=== PATIENT | male | born 1940 | race Hispanic/Latino ===

== ENCOUNTER 2017-10-26 05:57 | Inpatient (IN) | payer MEDICARE ==
[2017-10-26 06:39] LABS: #Eosinphils 0.2 thou/uL (0.0-0.7); #Monocytes 0.5 thou/uL (0.11-0.59); #Neutrophils 4.3 thou/uL (1.40-6.50); %Basophils 0.4 % (0.0-1.0); %Eosinophils 2.6 % (0.0-10.0); %Lymphocytes 16.2 % (21.0-51.0); %Monocytes 8.9 % (0.0-10.0); Hemoglobin 14.1 g/dL (14.0-18.0); Mean Corpuscular HGB CONC 34.1 g/dL (32.0-36.0); Mean Corpuscular Hemoglobin 28.9 pg (27.0-31.0); Mean Corpuscular Volume 84.8 fl (80.0-94.0); Mean Platelet Volume 7.2 fL (7.4-10.4); Platelet Count 191 thou/uL (130-400); RBC Distribution Width 12.5 % (11.5-14.5); Red Blood Cell (RBC) Count 4.88 mill/uL (4.70-6.10)
[2017-10-26 07:00] LABS: Anion Gap 13 mmol/L (10-20); BUN (Urea Nitrogen) 12 mg/dL (8.4-25.7); Calc. Creatinine Clearance 0 mL/min (70-130); Calcium 9.3 mg/dL (7.8-10.44); Carbon Dioxide 25 mmol/L (23-31); Chloride 102 mmol/L (98-107); Estimated GFR-MDRD 83; Glucose 217 mg/dL (83-110); Potassium 4.2 mmol/L (3.5-5.1); Sodium 136 mmol/L (136-145)
[2017-10-26] MEDS ORDERED: Sodium Chloride 0.9% 10 ML ONE (07:02)
[2017-10-26] MEDS ORDERED: CEFAZOLIN/Water 2 GM/20 ML SYRINGE ONE (07:19)
[2017-10-26] MEDS ORDERED: Famotidine/PF 20 mg/2ml Vial ONE (07:45)
[2017-10-26] MEDS ORDERED: Fentanyl 100 MCG/2 ML VIAL ONE ×2 (07:45→09:22)
[2017-10-26] MEDS ORDERED: HYDROmorphone 0.5 MG/0.5 ML SYRINGE ONE (08:46)
[2017-10-26] MEDS ORDERED: Meperidine HCl/PF 25 MG/ML VIAL SLOW IVP PRN ×2 (08:53)
[2017-10-26] MEDS ORDERED: Promethazine HCl 25 MG/ML VIAL SLOW IVP PRN ×2 (08:53)
[2017-10-26] MEDS ORDERED: HYDROmorphone 2 MG/ML VIAL SLOW IVP PRN ×2 (08:53)
[2017-10-26] MEDS ORDERED: Ondansetron HCl/PF 4 MG/2 ML Vial IVP PRN ×4 (08:53→11:00)
[2017-10-26] MEDS ORDERED: Promethazine HCl 25 MG/ML VIAL IM PRN ×3 (08:53→10:59)
[2017-10-26] MEDS ORDERED: Morphine Sulfate 2 MG/ML SYRINGE SLOW IVP PRN ×2 (08:53)
--- NOTE | 2017-10-26 09:03 | OP ---
DATE OF PROCEDURE: 10/26/2017 SURGEON: Aj Carrera M.D. FLOORWORKER DISTRIBUTOR: Vazquez Alvarez PA-C PROCEDURE: Anterior cervical discectomy C5-6 and C6-7, interbody arthrodesis, intravertebral biomech anical device, local morselized autograft, demineralized bone matrix, anterior titanium instrumentati on C5-6 and C6-7. PROCEDURE IN DETAIL: The patient was brought into the operating room and intubated. He was position ed supine in modest extension on a gel-filled donut. Incision was made in the right precervical area and dissecting medial sternocleidomastoid muscle, identified the anterior cervical spine and our lev el was confirmed by x-ray. We debrided anterior osteophytes, placed distraction across the disc spac es, and completely decompressed the intravertebral discs from foramen to foramen. The bony endplates were then decorticated for the purpose of arthrodesis and appropriately sized intravertebral biomech anical PEEK device was brought into the field, filled with demineralized bone matrix, local morselize d autograft, and tapped into place securely at C5-6 and C6-7. Next, an anterior plate was brought in to the field and secured to C5, C6, and C7 using two 14 mm screws at each level. The wound was then extensively irrigated, immaculate hemostasis was secured, and the wound was closed in anatomic layers over a drain.
[2017-10-26] MEDS ORDERED: Acetaminophen 325 MG TAB PO PRN (10:45)
[2017-10-26] MEDS ORDERED: Loratadine 10 MG TAB PO PRN (10:45)
[2017-10-26] MEDS ORDERED: Loperamide HCl 2 MG CAP PO PRN (10:45)
[2017-10-26] MEDS ORDERED: Temazepam 15 MG CAP PO PRN (10:45)
[2017-10-26] MEDS ORDERED: HYDROcodone/Acetaminophen 5/325 mg Tablet PO PRN (10:45)
[2017-10-26] MEDS ORDERED: Mag-Al 1200 mg/1200 mg/30 ML UDCUP PO PRN ×2 (10:45→10:59)
[2017-10-26] MEDS ORDERED: Milk Of Magnesia 30 ML UDCUP PO PRN ×2 (10:45→10:59)
[2017-10-26] MEDS ORDERED: Diabetic Tussin 200 MG/10 ML UDCUP PO PRN (10:45)
[2017-10-26] MEDS ORDERED: Eucerin (Mineral Oil/Petrolatum,White) 30 gm Jar TOP PRN (10:45)
[2017-10-26] MEDS ORDERED: Ondansetron ODT 4 MG TAB PO PRN (10:45)
[2017-10-26] MEDS ORDERED: Labetalol HCl 100 MG/20 ML VIAL SLOW IVP PRN (10:45)
[2017-10-26] MEDS ORDERED: Sodium Chloride 0.65% Nasal 44 ML BOT EA NARE PRN (10:45)
[2017-10-26] MEDS ORDERED: Artificial Tears 18 DROP/0.9 ML EA EYE PRN (10:45)
[2017-10-26] MEDS ORDERED: Chloraseptic Spray 180 ml Bottle PO PRN (10:45)
[2017-10-26] MEDS ORDERED: hydrALAZINE 20 MG/ML VIAL SLOW IVP PRN (10:45)
[2017-10-26] MEDS ORDERED: Dextrose 50% Abboject 50 ML SYRINGE SLOW IVP PRN (10:45)
[2017-10-26] MEDS ORDERED: Senokot 8.6 MG TAB PO PRN (10:45)
[2017-10-26] MEDS ORDERED: HumaLOG 300 UNITS/3 ML VIAL SC PRN (10:45)
[2017-10-26] MEDS ORDERED: Dextrose 5% in Water 1,000 ML IV PRN (10:45)
[2017-10-26] MEDS ORDERED: tiZANidine HCl 4 MG TAB PO PRN (10:59)
[2017-10-26] MEDS ORDERED: diphenhydrAMINE 25 MG CAP PO PRN (10:59)
[2017-10-26] MEDS ORDERED: diphenhydrAMINE 50 MG/ML VIAL IVP PRN (10:59)
[2017-10-26] MEDS ORDERED: Promethazine HCl 12.5 MG SUPP PR PRN (10:59)
[2017-10-26] MEDS ORDERED: Promethazine 25 MG TAB PO PRN ×2 (10:59)
[2017-10-26] MEDS ORDERED: traMADol HCl 50 MG TAB PO PRN ×2 (10:59)
[2017-10-26] MEDS ORDERED: HYDROcodone/Acetaminophen 10/325 mg Tablet PO PRN ×2 (10:59)
[2017-10-26] MEDS ORDERED: Morphine 4 MG/ML Carpuject SLOW IVP PRN (10:59)
[2017-10-26 11:06] LABS: Hemoglobin A1c 8.4 % (4.0-6.0)
[2017-10-26] MEDS ORDERED: Morphine 4 MG/ML VIAL SLOW IVP PRN ×2 (11:15)
[2017-10-26] MEDS ORDERED: Metoprolol Tartrate 25 MG TAB PO SCH (11:15)
[2017-10-26] MEDS ORDERED: Lisinopril 10 MG TAB PO SCH (11:15)
--- NOTE | 2017-10-26 11:25 | CON ---
DATE OF CONSULTATION: 10/26/2017 PRIMARY CARE PHYSICIAN: Ilia Meneses M.D. PRIMARY ATTENDING: Aj Carrera M.D. REASON FOR CONSULTATION: Medical comanagement. HISTORY OF PRESENT ILLNESS: A 77-year-old male who has history of diabetes type 2 as well a s hypertension, which he was diagnosed in the past, but he was not taking any medication. When I ask ed the patient why he was not taking any medication, he reports that he did not like medication and h e stopped taking by himself. He was not checking his blood sugar as well as blood pressure at home. The patient was referred to neurosurgeon by primary care physician for his chronic neck pain and radi cular pain to right upper extremity. The patient was diagnosed with cervical spine degenerative join t disease as well as cervical spondylosis with radiculopathy. Patient failed outpatient therapy and today patient was electively admitted for anterior cervical discectomy C5-C6 and C6-C7, which was don e by Dr. Carrera and subsequently patient was transferred to surgical floor. When patient came to surgical floor, his blood pressure was 220/102 and that is why we were consulted for hypertension management and they did routine blood test this morning and his blood sugar was fou nd 217. Patient denies any chest pain, palpitations and shortness of breath. He denies any headache . He denies any focal motor or sensory symptoms. He denies any UTI symptoms. He denies any constip ation or diarrhea. Even though this blood pressure is high, patient is completely asymptomatic. The patient had cervical spine surgery today and he has drain in place and his pain is under control. PAST MEDICAL HISTORY: Reportedly he has history of diabetes type 2 and he was on oral hypoglycemic a gent, but currently he is not taking any medication. Similarly, patient has a history of hypertensio n, but he was not taking any medication for blood pressure. He was recently diagnosed with cervical spondylosis. PAST SURGICAL HISTORY: Abdominal hernia repair, status post anterior cervical discectomy C5-C6 and C 6-C7 today. CURRENT HOME MEDICATION: Lyrica 75 mg in the morning. PAST PSYCHIATRIC HISTORY: Reviewed and negative. ALLERGIES: No known drug allergy. FAMILY HISTORY: No strong family history of premature coronary artery disease, stroke or cancer. SOCIAL HISTORY: The patient lives at home with family. No history of tobacco, alcohol or illicit dr ug abuse. REVIEW OF SYSTEMS: The following complete review of systems was negative, unless otherwise mentioned in the HPI or below: Constitutional: Weight loss or gain, ability to conduct usual activities. Skin: Rash, itching. Eyes: Double vision, pain. ENT/Mouth: Nose bleeding, neck stiffness, pain, tenderness. Cardiovascular: Palpitations, dyspnea on exertion, orthopnea. Respiratory: Shortness of breath, wheezing, cough, hemoptysis, fever or night sweats. Gastrointestinal: Poor appetite, abdominal pain, heartburn, nausea, vomiting, constipation, or diarr hea. Genitourinary: Urgency, frequency, dysuria, nocturia. Musculoskeletal: Pain, swelling. Neurologic/Psychiatric: Anxiety, depression. Allergy/Immunologic: Skin rash, bleeding tendency. Please see my HPI for pertinent positive and negative. All other review of systems reviewed and nega tive except as mentioned in the HPI. PHYSICAL EXAMINATION: VITAL SIGNS: Currently, temperature 98.6, pulse 75, respiratory rate 16, saturation 95% on room air, and blood pressure 220/102. GENERAL: Patient is currently alert, awake, no obvious acute distress. HEAD: Normocephalic, atraumatic. EYES: Pupils round, reactive to light. Extraocular muscle intact. ENT: Oropharynx within normal limits. Moist mucous membranes, no oral lesion, no pharyngeal erythem a, no exudate. NECK: Surgical site is covered with dressing and drain in place. LUNGS: Clear to auscultation without any rhonchi or rales. CARDIAC: S1 and S2 regular. No murmur, no gallop, no rub. ABDOMEN: Obesity present. Bowel sounds present, nontender, nondistended. No organomegaly, no mass, no suprapubic tenderness. BACK: Examination unremarkable, no CVA tenderness. EXTREMITIES: Upper extremity passive movements of all joints are normal. Lower extremities, no jaquan a. Good peripheral pulsation. SKIN: No skin rash. HEMATOLOGICAL SYSTEM: No lymphadenopathy. PSYCHIATRIC: Normal affect. SIGNIFICANT LABORATORY DATA: CBC: WBC 6.0, hemoglobin 14.1, platelet 191. BMP: Sodium 136, potass ium 4.2, chloride 102, carbon dioxide 25, anion gap 13, BUN 12, creatinine 0.89, glucose 217, calcium 9.3. ASSESSMENT AND PLAN/IMPRESSION: 1. Hypertensive urgency with history of hypertension, not on any medication at home, likely due to h is noncompliance. At this point, we will start lisinopril 10 mg p.o. daily. We will use hydralazine and labetalol p.r.n. basis. We will also add metoprolol 12.5 mg twice daily. Based on his vitals, we will titrate blood pressure medication and adjust accordingly. The patient education is given reg arding importance of taking blood pressure medication, monitoring and follow up with primary care adamaris caoian for adjustment of medication upon discharge. We will closely monitor his vitals. 2. Diabetes type 2. The patient was diagnosed with diabetes in the past and he was on oral diabetic medication, but he is no longer taking any medications due to his noncompliance. We will start insu april as per sliding scale protocol. Diabetic diet will be given. We will check hemoglobin A1c. Nece ssary dietary education given to the patient. We will start metformin 1000 mg p.o. b.i.d. 3. Obesity. Dietary education given, weight loss education given. Healthy lifestyle measures discu ssed with the patient. 4. Cervical spondylosis with radiculopathy status post anterior cervical discectomy. The patient gonzalez s drain in place. Surgical site and drain care will defer to neurosurgeon. The patient will need PT /OT while in hospital. Pain control with pain medication. We will continue Lyrica 75 mg p.o. daily. 5. Deep venous thrombosis prophylaxis, sequential compression device boots. No Lovenox because of c ervical spine surgery. 6. Gastrointestinal prophylaxis, Pepcid 20 mg p.o. b.i.d. 7. Code status: The patient is FULL CODE. Patient does not have any surrogate decision maker at th is point. Disposition plan based on clinical course. The patient is instructed to follow up with primary care physician as he will need further evaluation with urinalysis, lipid profile checked and routine health monitoring as an outpatient basis.
[2017-10-26] MEDS ORDERED: CEFAZOLIN/Water 2 GM/20 ML SYRINGE SLOW IVP SCH (14:00)
[2017-10-26] MEDS ORDERED: Glycopyrrolate 0.2 MG/ML 5 ML SYRINGE ONE (16:18)
[2017-10-26] MEDS ORDERED: PROPOFOL 200 MG/20 ML VIAL ONE (16:18)
[2017-10-26] MEDS ORDERED: Lidocaine 1% PF 5 ML VIAL ONE (16:18)
[2017-10-26] MEDS ORDERED: Dexamethasone 20 MG/5 ML VIAL ONE ×2 (16:18)
[2017-10-26] MEDS ORDERED: Ondansetron HCl/PF 4 MG/2 ML Vial ONE (16:18)
[2017-10-26] MEDS: CEFAZOLIN/Water 2 GM/20 ML SYRINGE SLOW IVP SCH (16:23)
[2017-10-26] MEDS: metFORMIN 500 MG TAB PO SCH (16:23)
[2017-10-26] MEDS: Sodium Chloride 0.9% 1,000 ML IV SCH (17:30)
[2017-10-26] MEDS: HumaLOG 300 UNITS/3 ML VIAL SC PRN (17:50)
[2017-10-26 18:51] VITALS: BMI 34.9
[2017-10-26] MEDS: Famotidine 20 MG TAB PO SCH (21:47)
[2017-10-26] MEDS: Metoprolol Tartrate 25 MG TAB PO SCH (21:47)
[2017-10-27] MEDS: CEFAZOLIN/Water 2 GM/20 ML SYRINGE SLOW IVP SCH (00:12)
[2017-10-27] MEDS: Sodium Chloride 0.9% 1,000 ML IV SCH (00:20)
[2017-10-27] MEDS: HumaLOG 300 UNITS/3 ML VIAL SC PRN (07:28)
[2017-10-27] MEDS ORDERED: Lisinopril 10 MG TAB PO SCH (09:00)
[2017-10-27] MEDS ORDERED: Pregabalin 75 MG CAP PO SCH (09:00)
[2017-10-27] MEDS ORDERED: Prevnar 13-Val Conj/PF 0.5 ML SYRINGE IM ONE (09:00)
[2017-10-27] MEDS: metFORMIN 500 MG TAB PO SCH (09:03)
[2017-10-27] MEDS: Metoprolol Tartrate 25 MG TAB PO SCH (09:04)
[2017-10-27] MEDS: Famotidine 20 MG TAB PO SCH (09:07)
--- NOTE | 2017-10-27 09:23 | PDOC.PN ---
- Subjective Encounter Start Date: 10/27/17 Encounter Start Time: 09:25 Subjective: No new complaints. -: No acute events overnight. - Objective Resuscitation Status: Resuscitation Status FULL:Full Resuscitation MAR Reviewed: Yes Vital Signs & Weight: Vital Signs (12 hours) Temp Pulse Resp BP BP BP Pulse Ox 10/27/17 09:04 184/95 H 10/27/17 07:38 97.2 F L 59 L 16 169/75 H 95 10/27/17 04:00 97.8 F 61 96 H 122/70 96 10/27/17 00:00 97.4 F L 60 16 127/79 96 Weight Weight 230 lb I&O: 10/26/17 10/27/17 10/28/17 06:59 06:59 06:59 Intake Total 1180 Output Total 680 Balance 500 Result Diagrams: 10/26/17 06:32 10/26/17 06:32 Additional Labs: Accuchecks 10/27/17 10/26/17 10/26/17 06:12 20:43 16:15 POC Glucose 205 H 224 H 244 H Phys Exam - Physical Examination Constitutional: NAD HEENT: PERRLA, moist MMs, sclera anicteric Neck: no JVD, supple, full ROM Respiratory: no wheezing, no rales, no rhonchi, clear to auscultation bilateral Cardiovascular: RRR, no significant murmur, no rub Gastrointestinal: soft, non-tender, no distention, positive bowel sounds Musculoskeletal: no edema, pulses present Neurological: non-focal, moves all 4 limbs Psychiatric: normal affect, A&O x 3 Skin: no rash, cap refill <2 seconds Dx/Plan (1) Hypertensive urgency Code(s): I16.0 - HYPERTENSIVE URGENCY Status: Resolved (2) DM2 (diabetes mellitus, type 2) Status: Acute Qualifiers: Diabetes mellitus bed bug exterminator insulin use: without bed bug exterminator use Diabetes mellitus complication status: without complication Qualified Code(s): E11.9 - Type 2 diabetes mellitus without complications (3) Obesity (BMI 30-39.9) Code(s): E66.9 - OBESITY, UNSPECIFIED Status: Chronic - Plan cont current plan of care Responded to therapy. Blood pressure better controlled. He has not required IV antihpertensives since 3pm yesterday. He will be continued on metoprolol and Lisinopril and encourage to take his medications as prescribed. His main problem is his non-adherence to therapy. - Diabetes also fairly well controlled on metformin. Review of Systems - Medications/Allergies Allergies/Adverse Reactions: Allergies Allergy/AdvReac Type Severity Reaction Status Date / Time No Known Allergies Allergy Unverified 10/23/17 12:33 Medications: Current Medications Acetaminophen (Tylenol) 650 mg PO Q4H PRN PRN Reason: Headache/Fever or Mild Pain Hydrocodone Bitart/Acetaminophen ([place] 5/325) 1 tab PO Q4H PRN PRN Reason: Moderate Pain (4-6) Hydrocodone Bitart/Acetaminophen ([place]on 10/325) 1 tab PO Q4H PRN PRN Reason: PAIN (1-3) Hydrocodone Bitart/Acetaminophen (A[place]on 10/325) 2 tab PO Q4H PRN PRN Reason: PAIN (4-6) Last Admin: 10/26/17 16:36 Dose: 2 tab Al Hydroxide/Mg Hydroxide (Maalox) 15 ml PO Q4H PRN PRN Reason: Heartburn or Indigestion Artificial Tears (Tears Naturale) 0 drop EA EYE PRN PRN PRN Reason: Dry Eyes Dextrose/Water (Dextrose 50%) 25 gm SLOW IVP PRN PRN PRN Reason: Hypoglycemia Diphenhydramine HCl (Benadryl) 25 mg PO Q6H PRN PRN Reason: Itching Diphenhydramine HCl (Benadryl) 25 mg IVP Q6H PRN PRN Reason: Itching Famotidine (Pepcid) 20 mg PO BID [facility] Last Admin: 10/27/17 09:07 Dose: 20 mg Glucagon (Glucagon) 1 mg IM PRN PRN PRN Reason: Hypoglycemia Guaifenesin (Robitussin Sf) 200 mg PO Q4H PRN PRN Reason: Cough Hydralazine HCl (Apresoline) 10 mg SLOW IVP Q4H PRN PRN Reason: Systolic BP > 180 Last Admin: 10/26/17 15:11 Dose: 10 mg Dextrose/Water (D5w) 1,000 mls @ 0 mls/hr IV .Q0M PRN; As Directed PRN Reason: Hypoglycemia Sodium Chloride (Normal Saline 0.9%) 1,000 mls @ 75 mls/hr IV .[id number] [facility] Last Admin: 10/27/17 00:20 Dose: Not Given Insulin Human Lispro (Humalog) 0 units SC .MODERATE SLIDING SC PRN PRN Reason: Moderate Correctional Scale Last Admin: 10/27/17 07:28 Dose: 4 unit Insulin Human Lispro (Humalog) 0 units SC .BEDTIME SLIDING SC PRN PRN Reason: Bedtime Correctional Scale Last Admin: 10/26/17 22:57 Dose: 2 unit Labetalol HCl (Normodyne) 20 mg SLOW IVP Q4H PRN PRN Reason: Systolic BP > 180 Lisinopril (Zestril) 10 mg PO DAILY [facility] Last Admin: 10/27/17 09:04 Dose: 10 mg Loperamide HCl (Imodium) 2 mg PO PRN PRN PRN Reason: Diarrhea/Loose Stools Loratadine (Claritin) 10 mg PO DAILYPRN PRN PRN Reason: Sinus Symptoms Magnesium Hydroxide (Milk Of Magnesium) 30 ml PO DAILYPRN PRN PRN Reason: Constipation Metformin HCl (Glucophage) 1,000 mg PO BID[facility] Last Admin: 10/27/17 09:03 Dose: 1,000 mg Metoprolol Tartrate (Lopressor) 25 mg PO BID [facility] Last Admin: 10/27/17 09:04 Dose: 25 mg Mineral Oil/White Petrolatum (Eucerin Cream) 0 gm TOP BIDPRN PRN PRN Reason: Dry Skin Morphine Sulfate (Morphine) 2 mg SLOW IVP Q1H PRN PRN Reason: Moderate Breakthrough Pain Morphine Sulfate (Morphine) 4 mg SLOW IVP Q1H PRN PRN Reason: Severe Breakthrough Pain Ondansetron HCl (Zofran Odt) 4 mg PO Q6H PRN PRN Reason: Nausea/Vomiting Ondansetron HCl (Zofran) 4 mg IVP Q6H PRN PRN Reason: Nausea/Vomiting Phenol (Chloraseptic [place] 180 Ml Bot) 0 ml PO PRN PRN PRN Reason: Sore Throat [facility]ab[facility] ([facility]rica) [facility] Last Admin: 10/27/17 09:05 Dose: 75 mg Promethazine HCl (Phenergan) 12.5 mg IM Q4H PRN PRN Reason: Nausea/Vomiting Promethazine HCl (Phenergan) 12.5 mg PO Q4H PRN PRN Reason: Nausea/Vomiting Promethazine HCl (Phenergan Suppository) 12.5 mg PA Q4H PRN PRN Reason: Nausea/Vomiting Senna (Senokot) 2 tab PO HSPRN PRN PRN Reason: Constipation Sodium Chloride ([place] Nasal [place] 0.65%) 0 ml EA NARE QIDPRN PRN PRN Reason: Nasal Congestion Sodium Chloride (Flush - Normal Saline) 10 ml IVF Q12HR [facility] Last Admin: 10/27/17 09:05 Dose: Not Given Sodium Chloride (Flush - Normal Saline) 10 ml IVF PRN PRN PRN Reason: Saline Flush Last Admin: 10/27/17 00:13 Dose: 10 ml Temazepam (Restoril) 15 mg PO HSPRN PRN PRN Reason: Insomnia Tizanidine HCl (Zanaflex) 4 mg PO Q6H PRN PRN Reason: MUSCLE SPASM Tramadol HCl (Ultram) 50 mg PO Q6H PRN PRN Reason: PAIN (1-3) Tramadol HCl (Ultram) 100 mg PO Q6H PRN PRN Reason: PAIN (4-6)
[2017-10-27 10:51] VITALS: TEMP 98.1
[2017-10-27 12:10] VITALS: BP 149/74
--- NOTE | 2017-11-01 08:36 | EKG ---
Test Reason : PREOP Blood Pressure : / mmHG Vent. Rate : 059 BPM Atrial Rate : 059 BPM P-R Int : 178 ms QRS Dur : 088 ms QT Int : 410 ms P-R-T Axes : 062 027 062 degrees QTc Int : 405 ms Sinus bradycardia Otherwise normal ECG No previous ECGs available Confirmed by PAVEL HARRY, BERT ([id number] on 11/01/2017 8:36:23 AM Referred By: BASILIO Confirmed By:BERT ZHAO MD
== END 2017-10-27 11:05 | disposition home or self-care (01) | DRG 473 ==
LOC: SURG A 05:57 → EDSTATUS 12:18
PROVIDERS: ADMIT Neurological Surgery; ATTEND Neurological Surgery
PROC: 0RG20A0 Fusion of 2 or more Cervical Vertebral Joints with Interbody Fusion Device, Anterior Approach, Anterior Column, Open Approach (ICD-10-PCS; principal; 2017-10-26)
PROC: 0RB30ZZ Excision of Cervical Vertebral Disc, Open Approach (ICD-10-PCS; 2017-10-26)
DX: M47.22 Other spondylosis with radiculopathy, cervical region (principal); E11.9 Type 2 diabetes mellitus without complications; I10 Essential (primary) hypertension; I16.0 Hypertensive urgency; E66.9 Obesity, unspecified; Z68.35 Body mass index [BMI] 35.0-35.9, adult; Z91.14 Patient's other noncompliance with medication regimen
CPT/HCPCS: 36415; 36416; 80048; 83036; 85025; 93005; 93010; A4216; C1713; C1776; G8978-GP-CI; G8979-GP-CI; G8980-GP-CI; J0360; J1100; J1170; J2001; J2270; J2405; J2704; J3010; J3490; S0028

== ENCOUNTER 2017-11-11 14:15 | Outpatient (CLI) | payer MEDICARE ==
--- NOTE | 2017-11-11 15:54 | RAD ---
THREE VIEWS CERVICAL SPINE: Date: 11-11-17 History: Post-surgery. Cervical radiculopathy. Comparison: None available. FINDINGS: C1 to C6-7 level is seen on the lateral view. The majority of the C7 vertebral body as well as cervic othoracic junction are obscured on the lateral projection. Post-surgical change related to anterior c ervical fusion of the C5-6 and C6-7 levels are noted with anterior plate and screws transfixing this level. Intradiscal prostheses are present. No obvious hardware complication is visualized but again t he space within the C7 vertebral body not well imaged. No fracture or subluxation is seen from C1 to C6-7 level. Vertebral body heights are within normal limits. There is mild prominence of the soft tis sues anterior to the level of the anterior plate which may be related to the recent post-surgical lorenzo nges. Vascular calcifications are seen in the carotid arteries. There are mild facet degenerative lorenzo nges noted. IMPRESSION: 1. Post-surgical change related to anterior cervical fusion of c5 though C7. C7 vertebral body is not well seen on this exam. No definite hardware complication is appreciated. 2. Mild prominence of the prevertebral soft tissues anterior to the level of the plate which could be related to recent post-surgical changes, but clinical correlation is recommended. POS: [facility]
== END 2017-11-11 14:16 | disposition home or self-care (01) ==
LOC: TBSIIMAG 14:15
PROVIDERS: ATTEND Neurological Surgery
DX: M54.12 Radiculopathy, cervical region (principal); Z98.1 Arthrodesis status
CPT/HCPCS: 72040